=== PATIENT | male | born 1995 | race African-American/Black ===

== ENCOUNTER 2019-02-25 12:39 | Emergency (ER) | payer SELFPAY | END 2019-02-25 13:56 | disposition home or self-care (01) | LOC: EDH 12:39 | DX: S81.832A Puncture wound without foreign body, left lower leg, initial encounter (principal); Z72.0 Tobacco use; W54.0XXA Bitten by dog, initial encounter; Y93.89 Activity, other specified; Y92.89 Other specified places as the place of occurrence of the external cause; Y99.8 Other external cause status ==